=== PATIENT | female | born 1990 ===

== ENCOUNTER 2025-05-29 06:42 | Emergency (ER) ==
[~2025-05-29] VITALS: Ht 175.3 cm; Wt 142.9 kg
[2025-05-29 06:42] VITALS: TEMP 98.2
[2025-05-29 07:26] LABS: BASOPHILS % 0.2 % (0.0-1.0); EOSINOPHILS % 2.3 % (0.0-6.0); LYMPHOCYTES % 29.8 % (18.0-39.1); MONOCYTES % 8.5 % (4.4-11.3); NEUTROPHILS % 58.8 % (38.7-80.0); RED CELL DISTRIBUTION WIDTH 12.8 % (11.7-14.4)
[2025-05-29 07:44] LABS: INR 1.05
[2025-05-29 07:46] LABS: EST GLOMERULAR FILTRATION RATE 117 ML/MIN (>=60)
[2025-05-29 08:04] LABS: CORONAVIRUS COVID-19 AG NEGATIVE (NEGATIVE)
[2025-05-29 08:50] VITALS: PULSE 72; RESP 18; O2SAT 100
[2025-05-29 08:56] VITALS: TEMP 97.4
== END 2025-05-29 08:54 | disposition home or self-care (01) ==
LOC: ER 06:56
DX: R06.00 Dyspnea, unspecified (principal); R00.2 Palpitations; Z91.148 Patient's other noncompliance with medication regimen for other reason; I10 Essential (primary) hypertension; E11.9 Type 2 diabetes mellitus without complications
CPT/HCPCS: 36415; 71045; 80053; 82550; 83880; 84484; 84702; 85025; 85379; 85610; 85730; 93005; 99284